=== PATIENT | male | born 2000 | race Caucasian/White ===

== ENCOUNTER 2019-12-28 15:04 | Emergency (ER) | payer OTHER ==
[~2019-12-28] VITALS: Ht 185.4 cm; Wt 111.1 kg
[2019-12-28 15:21] LABS: URINE BILIRUBIN NEGATIVE (Negative); URINE BLOOD NEGATIVE (Negative); URINE CLARITY CLEAR; URINE COLOR YELLOW; URINE GLUCOSE-RANDOM NEGATIVE (Negative); URINE KETONES NEGATIVE (Negative); URINE LEUKOCYTES-REFLEX NEGATIVE (Negative); URINE NITRITE-REFLEX NEGATIVE (Negative); URINE PROTEIN NEGATIVE (Negative); URINE UROBILINOGEN 0.2 E.U./dl (0.2-1.0)
[2019-12-28 15:32] LABS: HEMATOCRIT 48.8 % (42.0-52.0); HEMOGLOBIN 17.4 gm/dL (14.0-18.0); MCH 30.9 pg (26.0-34.0); MCHC 35.6 g/dL (28.0-37.0); MCV 86.8 fL (80.0-100.0); MPV 7.6 fl. (7.2-11.1); NUCLEATED RBCS 0 /100WBC; PLATELET COUNT* 196 thou/uL (150-400); RBC 5.62 mil/uL (4.50-6.00); RDW-CV 12.3 % (10.5-14.5); WBC 13.5 thou/uL (4.0-11.0)
[2019-12-28 15:41] LABS: CALCIUM 8.1 mg/dL (8.5-10.1); CREATININE 1.2 mg/dL (0.6-1.3); POTASSIUM 3.3 mmol/L (3.5-5.1)
[2019-12-28 15:46] LABS: ALBUMIN 3.5 g/dL (3.4-5.0); TOTAL BILIRUBIN 0.9 mg/dL (<0.1-1.0); TOTAL PROTEIN 6.2 g/dL (6.4-8.2)
[2019-12-28 16:12] LABS: ABSOLUTE MONOCYTES 0.5 thou/uL (0.0-1.2); ABSOLUTE NEUTROPHILS 10.9 thou/uL (1.6-8.1); PLATELET ESTIMATE ADEQUATE
[2019-12-28] MEDS ORDERED: BENTYL 20 MG TA20 M1 PO (16:55)
[2019-12-28] MEDS ORDERED: CIPRO500 MG PO (16:55)
[2019-12-28] MEDS ORDERED: ONDANSETRON HCL4 M2 PO (16:55)
[2019-12-28] MEDS ORDERED: NORCO 5-325 TA1 EAC1 PO (16:55)
[2019-12-28 17:20] VITALS: BP 110/63
--- NOTE | 2019-12-30 08:37 | EKG ---
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
== END 2019-12-28 17:20 | disposition home or self-care (01) ==
LOC: M.ERS 15:04
PROVIDERS: Nurse Practitioner Family
DX: I88.0 Nonspecific mesenteric lymphadenitis (principal); K56.7 Ileus, unspecified; Z88.0 Allergy status to penicillin